=== PATIENT | male | born 1965 | race Caucasian/White ===

== ENCOUNTER 2023-01-22 00:03 | Inpatient (IN) | payer MEDICAID ==
[2023-01-22] VITALS (9 sets, daily range): BP systolic 92–106; BP diastolic 49–71; PULSE 79–86; RESP 15–21; TEMP 97.3–98.6; O2SAT 100
[~2023-01-22] VITALS: Ht 170.2 cm; Wt 79.0 kg
[2023-01-22 01:20] LABS: BASOPHILS % 0.3 % (0.0-2.0); HEMATOCRIT. 32.4 % (42.0-52.0); HEMOGLOBIN. 10.9 g/dL (14.0-18.0); LYMPHOCYTES % 7.1 % (20.0-50.0); MEAN CORPUSCULAR HEMOGLOBIN 30.2 pg (28.0-32.0); MEAN CORPUSCULAR HGB CONC 33.6 g/dL (31.0-37.0); MEAN CORPUSCULAR VOLUME 89.8 fL (80.0-94.0); MEAN PLATELET VOLUME 7.9 fl (7.4-10.4); MONOCYTES % 10.2 % (2.0-8.0); NEUTROPHILS % 79.4 % (40.0-76.0); PLATELET 187 x1000/uL (130-400); RED BLOOD CELL COUNT 3.61 mill/uL (4.7-6.1); RED CELL DISTRIBUTION WIDTH 17.9 % (11.6-14.6); WHITE BLOOD COUNT 11.4 x1000/uL (4.5-11.0)
[2023-01-22 01:27] LABS: CHLORIDE 92 mEq/L (98-107); INDEX HEMOLYSI 1 (1-3); INDEX ICTERIC 2 (1-4); INDEX LIPEMIC 1 (1-3); POTASSIUM 4.2 mEq/L (3.5-5.1); SODIUM 122 mEq/L (136-145)
[2023-01-22 01:44] LABS: ACETAMINOPHEN < 2 ug/mL (10-30); ALANINE AMINOTRANSFERASE 54 IU/L (13-61); ASPARTATE AMINOTRANSFERASE 59 IU/L (15-37); BILIRUBIN TOTAL 2.6 mg/dL (0.1-1.0); CALCIUM 8.4 mg/dL (8.5-10.1); CARBON DIOXIDE 21 mEq/L (21-32); CREATINE KINASE 45 IU/L (39-308); CREATININE 1.2 mg/dL (0.6-1.3); ETHANOL BLOOD < 10 mg/dL (<10); GLUCOSE 147 mg/dL (70-105); NT PRO B-TYPE NATRIURETIC PEP 69 pg/mL (5-125); PROTEIN TOTAL 7.8 g/dL (6.0-8.3); UREA NITROGEN BLOOD 77 mg/dL (7-21)
[2023-01-22 02:02] LABS: AMMONIA 147 uMol/L (<32)
[2023-01-22] MEDS ORDERED: LACTULOSE ENEMA 1,000ML BOTTLE PR ONE (02:30)
[2023-01-22] MEDS ORDERED: SODIUM CHLORIDE 3% 500 ML IV ONE (02:30)
[2023-01-22 02:50] LABS: TROPONIN I HIGH SENSITIVITY 6 ng/L (<78)
[2023-01-22 02:53] LABS: PHOSPHORUS 4.2 mg/dL (2.5-4.9)
[2023-01-22] MEDS ORDERED: SODIUM CHLORIDE 3% 150 ML IV NR (03:00)
[2023-01-22] MEDS ORDERED: SODIUM CHLORIDE 3% 500ML IV SOLN IV ONE (03:00)
[2023-01-22] MEDS ORDERED: PIPERACILLIN/TAZ 3.375G PREMIX 50 ML IV SCH (15:00)
[2023-01-22] MEDS ORDERED: ONDANSETRON HCL 4MG/2ML INJ IV PRN (15:00)
[2023-01-22] MEDS ORDERED: CLONIDINE 0.1MG TABLET PO PRN (15:00)
[2023-01-22] MEDS ORDERED: CEFTRIAXONE 1GM PREMIX 50 ML IV SCH (15:00)
[2023-01-22] MEDS ORDERED: ACETAMINOPHEN 325MG TABLET PO PRN (15:00)
[2023-01-22] MEDS: SODIUM CHLORIDE 0.9% 1,000 ML IV SCH (15:00)
[2023-01-22] MEDS ORDERED: CEFTRIAXONE 1,000 MG in DEXTROSE 5% WATER 50 ML IV SCH (17:00)
[2023-01-22] MEDS ORDERED: ALBUMIN HUMAN 25GM/100ML (25%) IV NR (18:30)
[2023-01-22] MEDS: PIPERACILLIN/TAZOBACTAM 3.375G in DEXT 5% WATER 50ML IV SCH ×2 (18:48→23:24)
[2023-01-22] MEDS ORDERED: LACTULOSE 20G/30ML UDC PO SCH (22:00)
[2023-01-22] MEDS: RIFAXIMIN 550 MG TABLET PO SCH (23:24)
[2023-01-22] MEDS: LACTULOSE 20G/30ML UDC PO SCH (23:24)
[2023-01-23] VITALS (8 sets, daily range): BP systolic 92–108; BP diastolic 59–79; PULSE 68–82; RESP 14–18; TEMP 97.2–98.7
[2023-01-23] MEDS: SODIUM CHLORIDE 0.9% 1,000 ML IV SCH ×2 (03:41→17:26)
[2023-01-23 05:55] LABS: INDEX HEMOLYSI 3 (1-3)
[2023-01-23] MEDS: LACTULOSE 20G/30ML UDC PO SCH ×2 (06:00→17:24)
[2023-01-23 06:08] LABS: HEMATOCRIT. 33.3 % (42.0-52.0); HEMOGLOBIN. 11.2 g/dL (14.0-18.0); INR 1.3; MEAN CORPUSCULAR HEMOGLOBIN 30.8 pg (28.0-32.0); MEAN CORPUSCULAR HGB CONC 33.7 g/dL (31.0-37.0); MEAN CORPUSCULAR VOLUME 91.2 fL (80.0-94.0); MEAN PLATELET VOLUME 8.5 fl (7.4-10.4); PLATELET 158 x1000/uL (130-400); PROTHROMBIN TIME 13.6 sec (9.6-11.0); RED BLOOD CELL COUNT 3.65 mill/uL (4.7-6.1); RED CELL DISTRIBUTION WIDTH 18.9 % (11.6-14.6); WHITE BLOOD COUNT 9.3 x1000/uL (4.5-11.0)
[2023-01-23 06:26] LABS: DIFFERENTIAL COMMENT 1
[2023-01-23] MEDS: PIPERACILLIN/TAZOBACTAM 3.375G in DEXT 5% WATER 50ML IV SCH ×2 (06:48→17:26)
[2023-01-23] MEDS ORDERED: PANTOPRAZOLE 40MG DR TABLET PO SCH (07:30)
[2023-01-23 07:43] LABS: AMMONIA 63 uMol/L (<32)
[2023-01-23 08:07] LABS: CHLORIDE 97 mEq/L (98-107); INDEX HEMOLYSI 1 (1-3); INDEX ICTERIC 2 (1-4); INDEX LIPEMIC 1 (1-3); POTASSIUM 4.5 mEq/L (3.5-5.1); SODIUM 128 mEq/L (136-145)
[2023-01-23 08:15] LABS: CALCIUM 8.5 mg/dL (8.5-10.1); CARBON DIOXIDE 24 mEq/L (21-32); CREATININE 0.9 mg/dL (0.6-1.3); GLUCOSE 119 mg/dL (70-105); UREA NITROGEN BLOOD 67 mg/dL (7-21)
[2023-01-23] MEDS ORDERED: PANTOPRAZOLE SODIUM 40 MG/VIAL IV SCH (09:00)
[2023-01-23] MEDS ORDERED: FUROSEMIDE 40MG TABLET PO SCH (09:00)
[2023-01-23] MEDS ORDERED: THIAMINE HCL 100MG TABLET PO SCH (09:00)
[2023-01-23] MEDS ORDERED: SPIRONOLACTONE 50MG TABLET PO SCH (09:00)
[2023-01-23] MEDS: RIFAXIMIN 550 MG TABLET PO SCH (09:28)
[2023-01-23] MEDS ORDERED: SODIUM BICARBONATE 4% (2.4MEQ) 5ML VIAL IV ONE (10:36)
[2023-01-23] MEDS ORDERED: LIDOCAINE HCL 1% 10 MG/ML 10ML VIAL ONE (10:36)
[2023-01-23] MEDS ORDERED: ALBUMIN HUMAN 25GM/100ML (25%) IV NR (13:30)
[2023-01-23 14:23] LABS: PLATELET ESTIMATE NORMAL
== END 2023-01-23 20:05 | disposition short-term general hospital (02) | DRG 280 ==
LOC: ER 00:03 → 5EST 05:08 → EDBEDREQTM 05:27 → EDBEDREQ 05:27
PROVIDERS: ADMIT Internal Medicine; ATTEND Internal Medicine
DX: K76.82 Hepatic encephalopathy (principal); K70.31 Alcoholic cirrhosis of liver with ascites; N17.9 Acute kidney failure, unspecified; J90 Pleural effusion, not elsewhere classified; R65.10 Systemic inflammatory response syndrome (SIRS) of non-infectious origin without acute organ dysfunction; E87.1 Hypo-osmolality and hyponatremia; J98.11 Atelectasis; N43.3 Hydrocele, unspecified
CPT/HCPCS: 36415; 71045; 74176; 80048; 80053; 80307; 80320; 80329; 82140; 82550; 83605; 83735; 83880; 84100; 84443; 84484; 85025; 93005; 99291; J0696; J2543; J3490; J7030; J7060; P9047; G0480